=== PATIENT | male | born 1985 | race Caucasian/White ===

== ENCOUNTER 2018-04-06 10:12 | Inpatient (IN) | payer BC, OTHER ==
[~2018-04-06] VITALS: Ht 177.8 cm; Wt 73.5 kg
[2018-04-06] MEDS ORDERED: LORAZEPAM 1 MG TABLET PO PRN (13:00)
[2018-04-06] MEDS ORDERED: ONDANSETRON ODT 4 MG TAB.RAPDIS SL PRN (13:00)
[2018-04-06] MEDS ORDERED: MIRALAX 17 GM POWD.PACK PO PRN (13:00)
[2018-04-06] MEDS ORDERED: CLONIDINE HCL 0.1 MG TABLET PO PRN (13:00)
[2018-04-06] MEDS ORDERED: LOPERAMIDE HCL 2 MG CAPSULE PO PRN ×2 (13:00)
[2018-04-06] MEDS ORDERED: diphenhydrAMINE 50 MG CAPSULE PO PRN (13:00)
[2018-04-06] MEDS ORDERED: MAGNESIUM HYDROXIDE 30 ML LIQUID UDC PO PRN (13:00)
[2018-04-06] MEDS ORDERED: IBUPROFEN 600 MG TABLET PO PRN (13:00)
[2018-04-06] MEDS ORDERED: ONDANSETRON 4 MG/2 ML VIAL IM PRN (13:00)
[2018-04-06] MEDS ORDERED: BUPRENORPHINE HCL 2 MG TAB.SUBL SL PRN (13:00)
[2018-04-06] MEDS ORDERED: ACETAMINOPHEN 325 MG TABLET PO PRN (13:00)
[2018-04-06] MEDS ORDERED: MAG HYDROX/AL HYDROX/SIMETH 30 ML LIQUID UDC PO PRN (13:00)
[2018-04-06] MEDS ORDERED: DICYCLOMINE HCL 20 MG TABLET PO PRN (13:00)
[2018-04-06] MEDS ORDERED: NICOTINE 14 MG/24HR PATCH TD PRN (13:15)
[2018-04-06] MEDS ORDERED: NICOTINE POLACRILEX 4 MG GUM-PK OF TEN BC PRN (13:15)
--- NOTE | 2018-04-06 13:25 | NUR ---
PRE ADMISSION NOTE: PATIENT MET IN INTAKE OFFICE, HE APPEARS SOMBER WITH A FLAT AFFECT AND MILDLY INTOXICATED, AVOIDS EYE CONTACT. VITAL SIGNS: BP 118/57, HR 88, O2 97%, RR [address] JOHNSON, WILL COMPLETE ASSESSMENT WHEN PATIENT ARRIVES ON FLOOR.
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
[2018-04-06 13:47] LABS: BASOPHILS # (AUTO) 0.1 K/uL (0.0-8.0); BASOPHILS % (AUTO) 0.7 % (0.0-2.0); EOSINOPHILS # (AUTO) 0.1 K/uL (0.0-0.7); HEMATOCRIT 44.7 % (36.7-47.1); HEMOGLOBIN 15.4 g/dL (12.5-16.3); LYMPHOCYTES # (AUTO) 1.9 K/uL (20.0-40.0); LYMPHOCYTES % (AUTO) 22.7 % (20.5-51.5); MEAN CORPUSCULAR HEMOGLOBIN 27.3 uug (23.8-33.4); MEAN CORPUSCULAR HGB CONC 35 g/dL (32.5-36.3); MEAN CORPUSCULAR VOLUME 79.2 fL (73.0-96.2); MONOCYTES # (AUTO) 0.4 K/uL (2.0-10.0); MONOCYTES % (AUTO) 4.8 % (0.0-11.0); NEUTROPHILS # (AUTO) 5.9 K/uL (1.8-8.9); NEUTROPHILS % (AUTO) 70.8 % (38.5-71.5); PLATELET COUNT (AUTO) 247 K/uL (152-348); RED BLOOD CELL COUNT(AUTO) 5.65 MIL/uL (4.06-5.63); WHITE BLOOD COUNT (AUTO) 8.3 K/uL (3.6-10.2)
[2018-04-06 14:03] LABS: ALANINE AMINOTRANSFERASE 45 U/L (16-63); ALKALINE PHOSPHATASE 97 U/L (50-136); ASPARTATE AMINOTRANSFERASE 27 U/L (15-37); BILIRUBIN,TOTAL 0.6 mg/dL (0.2-1.0); CARBON DIOXIDE 33 mmol/L (21-32); CHLORIDE 99 mmol/L (98-107); CREATININE 1.1 mg/dL (0.6-1.3); GLUCOSE 99 mg/dL (74-106); MAGNESIUM 2.3 mg/dL (1.8-2.4); POTASSIUM 3.9 mmol/L (3.5-5.1); TOTAL PROTEIN, SERUM 7.8 g/dL (6.4-8.2); UREA NITROGEN, BLOOD 25 mg/dL (7-18)
[2018-04-06] MEDS ORDERED: LACT1CAP71 PO (15:03)
[2018-04-06] MEDS ORDERED: QUET25TA PO (15:03)
[2018-04-06] MEDS ORDERED: SERT100T PO (15:03)
[2018-04-06] MEDS ORDERED: GABA600T2 PO (15:03)
[2018-04-06 15:04] LABS: *AMPHETAMINE, URINE POSITIVE (NEGATIVE); *BARBITURATE, URINE NEGATIVE (NEGATIVE); *CANNABINOID, URINE NEGATIVE (NEGATIVE); *COCCAINE, URINE NEGATIVE (NEGATIVE); *OPIATE, URINE POSITIVE (NEGATIVE); *PHENCYCLIDINE SCREEN,URINE NEGATIVE (NEGATIVE)
[2018-04-06] MEDS: TERBINAFINE CREAM 24 GM TUBE TP SCH (15:15)
[2018-04-06 15:27] LABS: ETHANOL < 3 MG/DL (0-0)
[2018-04-06 17:00] VITALS: BP 105/65
[2018-04-06] MEDS: GABAPENTIN 600MG PO SCH ×2 (18:00→20:58)
--- NOTE | 2018-04-06 18:57 | NUR ---
END OF SHIFT : PATIENT IS A 32 YR OLD MALE ADMITTED TODAY 04/06/18 FOR A MEDICALLY SUPERVISED WITHDRAWAL FROM OPIATES ( HEROIN). PATIENT HAS NOT STARTED ANY TAPER YET BUT STATES AT THIS TIME HE IS STARTING TO FEEL SOME MILD WITHDRAWAL SYMPTOMS MAINLY AGITATION AND IRRITABILITY, ATIVAN 2MG PO GIVEN FOR CIWA 11. PATIENT HAD A FLUID INTAKE OF 300 ML,2 VOIDS AND 0BM. UDS AND BLOOD LABS COMPLETE. PATIENT HAS A SAD, FLAT AFFECT BUT IS COOPERATIVE AND ADHERENT TO ALL RULES. LAST COWS 6 @ 1700 AND CIWA 13@ 1800 CONTINUE TO FOLLOW MD PLAN OF CARE, ENDORSED TO NIGHT NURSE.
--- NOTE | 2018-04-06 19:30 | NUR ---
Start of Shift Notes: Report received from day shift nurse. Per day shift nurse, last CIWA was 6 at 1541. Upon start of shift pt was in room, in bed, with eyes closed. Respirations even and unlabored. Pt had just received 2mg Ativan PRN prior to start of shift. Pt is AOx3, lung sounds clear bilaterally. No acute distress noted. Skin is warm and dry. Pt denies pain at this time. Pt is currently on PRN Subutex protocol for opiate withdrawal management. Bed in lowest position. Side rails up x2. Call light functioning and within reach. All needs attended and met. Will continue to monitor.
[2018-04-06 20:00] VITALS: BP 110/64
--- NOTE | 2018-04-07 | NUR ---
Vitals refused/COWS deferred: Attempted to take vital signs. Pt currently in bed with eyes closed. Pt unwilling to take vitals and requests to sleep. No acute distress noted. Will continue to monitor.
[2018-04-07 04:00] VITALS: BP 107/70
--- NOTE | 2018-04-07 04:00 | NUR ---
COWS deferred: Vitals taken. Pt unwilling to do COWS assessment. Pt remains in bed with eyes closed and continues to sleep.
--- NOTE | 2018-04-07 07:03 | NUR ---
End of Shift Notes: Pt currently in bed with eyes closed. Pt slept for 9 hours. No PRN medications given during shift. Pt's last COWS was 4 at 2000. Unable to assess COWS at 0000 and 0400 due to pt being asleep. Pt is currently on PRN Subutex protocol for withdrawal management. Fall and Sz precautions observed. Bed in lowest position. Side rails up x2. Call light functioning and within reach. All needs attended and met. Will endorse to day shift nurse.
--- NOTE | 2018-04-07 07:10 | NUR ---
START OF SHIFT : PATIENT IS A 32 YR OLD MALE ADMITTED TO [facility] ON 04/06/18 FOR A MEDICALLY SUPERVISED WITHDRAWAL FROM HEROIN. HE IS ASLEEP IN BED AT THIS TIME, BREATHING EVEN AND UNLABORED, SIDE RAILS UP X 2. NO PRN MEDICATIONS WERE REQUIRED OR REQUESTED ON PM SHIFT. PATIENT SLEPT FOR 7 HOURS AND LAST COWS 4 @ 8PM. CONTINUE TO FOLLOW MD PLAN OF CARE.
[2018-04-07 08:00] VITALS: BP 120/67
[2018-04-07 08:07] LABS: HEPATITIS B SURFACE AG Negative (Negative)
[2018-04-07] MEDS ORDERED: TUBERCULIN,PURIF.PROT.DERIV. 5 TU/0.1 ML TEST ID ONE (09:00)
--- NOTE | 2018-04-07 09:00 | NUR ---
PRN IMODIUM IMODIUM 4MG PO GIVEN FOR R/O DIARRHEA X 2 WILL REASSESS
[2018-04-07] MEDS: TERBINAFINE CREAM 24 GM TUBE TP SCH (09:01)
[2018-04-07] MEDS: GABAPENTIN 600MG PO SCH ×3 (09:01→20:33)
--- NOTE | 2018-04-07 10:00 | NUR ---
PRN REASSESS PT REPORTS DIARRHEA HAS STOPPED, IMODIUM EFFECTIVE
[2018-04-07 12:00] VITALS: BP 103/58
[2018-04-07] MEDS: BUPRENORPHINE HCL 2 MG TAB.SUBL SL SCH ×2 (13:00→20:33)
[2018-04-07] MEDS: METHOCARBAMOL 750 MG TABLET PO PRN (13:36)
[2018-04-07] MEDS: HYDROXYZINE PAMOATE 25 MG CAPSULE PO PRN (13:45)
--- NOTE | 2018-04-07 13:45 | NUR ---
PRN CLONIDINE/VISTARIL/ROBAXIN CLONIDINE 0.1MG PO VISTARIL 25MG PO GIVEN FOR INCREASED ANXIETY/AGITATION ROBAXIN 750MG PO GIVEN FOR MUSCLE CRAMPS WILL REASSESS
[2018-04-07] MEDS ORDERED: LORAZEPAM 1 MG TABLET PO PRN (14:00)
--- NOTE | 2018-04-07 14:02 | NUR ---
Client was prompted to attend group counseling sessions twice daily.
--- NOTE | 2018-04-07 14:30 | NUR ---
PRN ATIVAN ATIVAN 2MG PO GIVEN FOR CIWA 15, PT IS IRRITABLE, HIGH ANXIETY AND WHOLE BODY SHAKING WILL REASSESS
--- NOTE | 2018-04-07 14:45 | NUR ---
PRN REASSESS ROBAXIN EFFECTIVE FOR MUSCLE CRAMPS CLONIDINE AND VISTARIL MILDLY EFFECTIVE PER PT REPORT CONTINUE TO MONITOR
[2018-04-07] MEDS ORDERED: QUETIAPINE FUMARATE 25 MG TABLET PO PRN (15:00)
--- NOTE | 2018-04-07 15:09 | NUR ---
PRN ATIVAN REASSESS PT ASLEEP IN BED, BREATHING EVEN AND UNLABORED, CONTINUE TO MONITOR
--- NOTE | 2018-04-07 15:18 | NUR ---
ENDORSEMENT PATIENT ENDORSED TO ELLEN WATSON FOR CONTINUATION OF CARE, PT ASLEEP IN BED AT THIS TIME, PRN MEDS GIVEN BY THIS NURSE TODAY : IMODIUM, VISTARIL, CLONIDINE, ROBAXIN AND ATIVAN 2MG. LAST COWS 10 AND CIWA 11@ 1500.
[2018-04-07 16:00] VITALS: BP 102/57
--- NOTE | 2018-04-07 18:57 | NUR ---
End Of Shift Report given to night auditor nurse, plan of care reviewed, VS monitored closely q 4 hours. Withdrawal symptoms were closely monitored, medications given as scheduled. Initial COWS 9. Patient encouraged adequate PO fluid intake as tolerated. Patient presented with tremors sweats, and anxiety during the day. Pt Received PRN Imodium, Vistaril, Clonidine, Ativan and Robaxin all medication were effective. Last COWS 11. Pt states Ativan been helping him with his withdrawal symptoms. Pt refused to take the Subutex. Plan of care followed, updated on patients condition. Pt ate all of his meals, attended some groups and activities. Patient encouraged to attend all group therapies/sessions to learn new coping skills to recent relapse, patient denies SI/HI. all safety measures in place, bed in lowest locked position, call light within reach. All needs met and attended.
[2018-04-07 20:00] VITALS: BP 107/61
--- NOTE | 2018-04-07 20:00 | NUR ---
Start of Shift Note Received 32 y/o male px, admitted for medically supervised withdrawal from Heroin. Px is placed on 3 day Subutex taper ending on 04/09/2018. Last reported COWS 11 by AM shift nurse. During the rounds at 1999, px is awake on bed in left side lying position. Px appears disheveled, unshaven and anxious. Unfinished drinks and snacks noted on top of the bed side table and cabinet. Px has poor eye contact and flat affect. Px stated "My anxiety is 5/10 and I feel restless. I have body aches of 3/10." Px requested for another blanket. Bed on lowest position, side rails up 2x and call light within reach. We'll continue to monitor.
--- NOTE | 2018-04-07 20:20 | NUR ---
Px is refusing to take Subutex Px stated "I wanted to be free on opiate. I don't want to take the Subutex." Px educated about the effects of the Subutex. Finally, px agrees to take the Subutex 2 mg/tab, 2 tabs as standing order at 2100. COWS 11 at this moment.
[2018-04-08] VITALS: BP 106/58
[2018-04-08 04:00] VITALS: BP 110/61
--- NOTE | 2018-04-08 04:00 | NUR ---
COWS deferred COWS deferred at 0000 and 0400 due to the px is asleep, to assess if the px is awake per doctor's order. We'll continue to monitor.
[2018-04-08] MEDS: METHOCARBAMOL 750 MG TABLET PO PRN (06:21)
--- NOTE | 2018-04-08 06:21 | NUR ---
PRN Robaxin Px received Robaxin 750 mg/ tab, 1 tab for body aches 07/02 as PRN medication. To reassess after an hour. We'll continue to monitor.
--- NOTE | 2018-04-08 07:10 | NUR ---
End of Shift Note During the shift, px slept most of the time. Px was refusing to take Subutex as a standing order at 2100, px was educated about the effects of Subutex, then px finally agreed to take it. At 0621, px complained about body aches of 8/10. Robaxin 750 mg given PO as PRN medication. To reassess after an hour. Px's oral intake is 1 L, voided 2x, with No BM. Last COWS 9. Bed on lowest position, side rails up 2x and call light within reach. We'll continue to monitor. Px endorsed to AM shift nurse.
--- NOTE | 2018-04-08 07:30 | NUR ---
START OF SHIFT Pt 32 y/o male admitted for heroin withdrawal. Pt received in room on bed with eyes closed resting, but easily arousable to name. Pt alert and oriented to name, place, and time. Perrla. Skin warm and moist to touch. Respirations even and unlabored. Bilateral hand tremors noted. Pt disheveled. Food wrappings and empty water bottles scattered throughout the room. Pt with flat affect. It was reported that pt slept for 9 hours last night. Pt is on a 3 day subutex taper and is on day 2. Bed on lowest position with side rails x2 up for safety. Call light within reach.
[2018-04-08 08:00] VITALS: BP 121/72
[2018-04-08] MEDS: BUPRENORPHINE HCL 2 MG TAB.SUBL SL SCH ×3 (08:37→21:44)
[2018-04-08] MEDS: SERTRALINE HCL 100 MG TABLET PO SCH (08:37)
[2018-04-08] MEDS: GABAPENTIN 600MG PO SCH ×3 (08:37→21:44)
[2018-04-08] MEDS: TERBINAFINE CREAM 24 GM TUBE TP SCH (08:37)
[2018-04-08 12:00] VITALS: BP 112/70
[2018-04-08] MEDS ORDERED: KETOROLAC TROMETHAMINE 30 MG INJ IM PRN (12:15)
[2018-04-08 16:00] VITALS: BP 116/76
--- NOTE | 2018-04-08 18:47 | NUR ---
END OF SHIFT Pt 32 y/o male admitted for heroin withdrawal. Pt alert and oriented to name, place, and time. Perrla. Skin warm and moist to touch. Respirations even and unlabored. Bilateral hand tremors noted. Pt disheveled. Clothes and empty water bottles scattered throughout the room. Pt isolative to room throughout the day. Pt did not attend group activity. Pt with low motivation for self care. Pt also with minimal peer interaction. Encouraged to maintain hygiene. Pt was seen by MD today. Pt medication compliant and tolerated well. No ASE noted. Pt is on a 3 day subutex taper and is on day 2. Cows= 9@0800, 9@1200, and 9@1600. Bed on lowest position with side rails x2 up for safety. Call light within reach.
--- NOTE | 2018-04-08 19:30 | NUR ---
Start of Shift Note Received 32 y/o male px, admitted for medically supervised withdrawal from Heroin. Px is placed on 3 day Subutex taper ending on 04/09/2018. Px is tolerating it. Last reported COWS 9 by AM shift nurse. During the rounds at 1940, px is awake standing, eating a bar of chocolate inside his room. Px appears disheveled, unshaven and anxious. Unfinished drinks and snacks still noted on top of the bed side table and cabinet. Px has flat affect. Px stated "I feel hot/cold flushes. right now, my anxiety is 5/10. " Bed on lowest position, side rails up 2x and call light within reach. We'll continue to monitor.
[2018-04-08 20:00] VITALS: BP 121/83
[2018-04-08] MEDS: CLONIDINE HCL 0.1 MG TABLET PO SCH (21:44)
[2018-04-08] MEDS: BACLOFEN 10 MG TABLET PO SCH (21:44)
[2018-04-09] VITALS: BP 120/62
[2018-04-09 04:00] VITALS: BP 118/65
--- NOTE | 2018-04-09 04:00 | NUR ---
COWS deferred COWS deferred due to the px is asleep, to assess if the px is awake per doctor's order. We'll continue to monitor.
--- NOTE | 2018-04-09 07:06 | NUR ---
End of Shift Note During the shift, No PRN medication given. Px's oral intake is 1 L, voided 2x, with No BM. Px slept for total of 6 hours. Last COWS 7. At 0630, px is awake on bed in fowlers position. Bed on lowest position, side rails up 2x and call light within reach. We'll continue to monitor. Px endorsed to AM shift nurse.
--- NOTE | 2018-04-09 07:24 | NUR ---
START OF SHIFT Pt 32 y/o male admitted for heroin withdrawal. Pt received in room on bed watching television. Pt alert and oriented to name, place, and time. Perrla. Skin warm and moist to touch. Respirations even and unlabored. Bilateral hand tremors noted. Pt disheveled. Clothes and empty water bottles scattered throughout the room. Pt appears with low motivation for self care. Encouraged to maintain hygiene. Pt with c/o chills this morning. It was reported that pt slept for 6 hours last night. Pt is on a 3 day subutex taper and is on day 3. Bed on lowest position with side rails x2 up for safety. Call light within reach.
[2018-04-09] MEDS: CLONIDINE HCL 0.1 MG TABLET PO SCH ×3 (08:27→20:27)
[2018-04-09] MEDS: GABAPENTIN 600MG PO SCH ×3 (08:27→20:27)
[2018-04-09] MEDS: BACLOFEN 10 MG TABLET PO SCH ×3 (08:27→20:27)
[2018-04-09] MEDS: SERTRALINE HCL 100 MG TABLET PO SCH (08:27)
[2018-04-09] MEDS: TERBINAFINE CREAM 24 GM TUBE TP SCH (08:27)
[2018-04-09 08:31] VITALS: BP 143/88
[2018-04-09] MEDS ORDERED: BUPRENORPHINE HCL 2 MG TAB.SUBL SL SCH (09:00)
[2018-04-09 12:00] VITALS: BP 109/68
[2018-04-09] MEDS ORDERED: IBUP-1955 PO (14:47)
[2018-04-09] MEDS ORDERED: HYDR-3895 PO (14:47)
[2018-04-09] MEDS ORDERED: CLON0.1T14 PO (14:47)
[2018-04-09] MEDS ORDERED: DICY20TA28 PO (14:47)
[2018-04-09] MEDS ORDERED: METH-406 PO (14:47)
[2018-04-09 16:00] VITALS: BP 108/49
--- NOTE | 2018-04-09 18:40 | NUR ---
END OF SHIFT Pt 32 y/o male admitted for heroin withdrawal. Pt alert and oriented to name, place, and time. Perrla. Skin warm and moist to touch. Respirations even and unlabored. Bilateral hand tremors noted. Pt disheveled. Clothes and empty water bottles scattered throughout the room. Pt observed mostly in room throughout the day, but did attend group activity and went to recreational room at times. Encouraged to maintain hygiene. Pt was seen by MD today. Pt medication compliant and tolerated well. No ASE noted. Pt is on a 3 day subutex taper and is on day 3. Cows= 7@0800, 6@1200, and 6@1600. Pt is scheduled to be discharged tomorrow. Bed on lowest position with side rails x2 up for safety. Call light within reach.
--- NOTE | 2018-04-09 18:40 | NUR ---
START OF SHIFT NOTE: 32 year old male completed 3 Day Subutex Taper today for Opioid/Heroin withdrawal, which tolerated well. Withdrawal symptoms was closely monitored. Patient remains compliant with treatment, medications, and diet regime. He is alert and oriented x4. Patient appears worry, sad with flat affect. Emotional support provided. The patient noted disheveled, unshaven, unkempt, and uncombed. Patient was encouraged to independently perform hygiene care. Last COWS=6 at 1600: During day shift patient presented with anxiety,agitation, depression, nervousness,tremors, nasal congestion, sweating, body aches, restlessness, and fatigue, per day shift nurse report. VSWNL. Respirations are even and unlabored. Patient denies SOB, chest pain, and cough. Skin is intact, warm and moist to touch. No PRN medications given during day shift. Patient scheduled discharging tomorrow, on 04/10/2018 at 0930. All needs met. Safe and calm environment with minimized noises was provided. Safety measures in the place: Call light within reach, bed in the lowest position locked, padded rails up x2. Patient endorsed by day shift nurse.
[2018-04-09 20:00] VITALS: BP 123/63
--- NOTE | 2018-04-09 21:46 | NUR ---
PRN SEROQUEL 25 MG 1 TABLET PO ADMINISTRATION Patient c/o insomnia. PRN Seroquel 25 mg PO administrated with full glass of water as ordered. All needs met. Safe and calm environment with minimized noises was provided. Safety measures on place. Call light within reach, bed locked in lowest position, padded rails up bilaterally. Will continue to monitor closely.
--- NOTE | 2018-04-09 22:46 | NUR ---
RE-ASSESSMENT Patient is sleeping. RR 17. Respirations even and unlabored. PRN Seroquel 25 mg PO administrated for insomnia at 2146 was effective. Safe and calm environment with minimized noises was provided. All needs met. Safety measures on place. Call light within reach, bed locked in lowest position, padded rails up bilaterally. Will continue to monitor closely.
--- NOTE | 2018-04-10 | NUR ---
VS REFUSED, COWS DEFERRED VS refused, COWS deferred at 0400 due to patient sleeping; to be assessed and scored while patient is awake. Respirations are even and unlabored. RR:17. All needs met. Safety measures in place: Call light within reach, bed locked in low position, padded side rails up x2. Will continue to monitor closely. VS REFUSED, COWS DEFERRED VS refused, COWS deferred at 0000 due to patient sleeping; to be assessed and scored while patient is awake. Respirations are even and unlabored. RR:15. All needs met. Safety measures in place: Call light within reach, bed locked in low position, padded side rails up x2. Will continue to monitor closely.
--- NOTE | 2018-04-10 04:00 | NUR ---
VS REFUSED, COWS DEFERRED VS refused, COWS deferred at 0400 due to patient sleeping; to be assessed and scored while patient is awake. Respirations are even and unlabored. RR:16. All needs met. Safety measures in place: Call light within reach, bed locked in low position, padded side rails up x2. Will continue to monitor closely.
--- NOTE | 2018-04-10 06:59 | NUR ---
END OF SHIFT NOTE: Presented patient is a 32 year old male admitted for safety withdrawal from Opioid (heroin). He is completed ordered 3 day Subutex taper without ASE Patient is alert and oriented x4, reports NKA, is on Full Code, Regular Diet, is on Seizures and Fall Precautions. Patient denies withdrawal-induced seizures, hallucinations, and SI/HI. Patient is alert and oriented x4. The most recent COWS=10. Patient presented with anxiety, agitation, nervousness, abdominal cramps, tremors, sweating, restlessness, fatigue, and insomnia. PRN Seroquel 25 mg PO administrated for insomnia at 2146 was effective. Patient remains compliant with treatment, medications, and diet regime. Encouraged to fluids intake as tolerated. Encouraged to attend group activities. Patient slept 6 hours, intake 1,302 ml, voided x4. Patient scheduled discharging today. All needs met. Safe and calm environment with minimized noises was provided. Patient slept 7 hours, intake 500 ml, voided x1. Safety measures in the place: Call light within reach, bed in the lowest position locked, padded rails up x2. Patient endorsed to day shift nurse.
--- NOTE | 2018-04-10 07:20 | NUR ---
Start of shift Patient is a 32 year old male admitted for medically supervised withdrawal heroin. He completed 3 day Subutex taper. Pt scheduled for discharge to home today. Pt states he does not want to be discharged today. He is worried he will call his drug dealer when he gets out. He c/o generalized body aches and pain #8/10. Restless, anxious agitated, and rocking back and forth in bed. Patient is alert and oriented x4, reports NKA, Full Code. Pt is on Seizures and Fall Precautions. Patient denies withdrawal-induced seizures, hallucinations, and SI/HI. COWS=8. Patient remains compliant with treatment, medications, and diet regime. Last night Pt slept 7 hours. Safety measures in the place: Call light within reach, bed in the lowest position locked, padded rails up x2. Will continue to monitor for withdrawal symptoms.
[2018-04-10] MEDS: SERTRALINE HCL 100 MG TABLET PO SCH (07:43)
[2018-04-10] MEDS: HYDROXYZINE PAMOATE 25 MG CAPSULE PO PRN (07:43)
[2018-04-10] MEDS: GABAPENTIN 600MG PO SCH (07:44)
[2018-04-10] MEDS: TERBINAFINE CREAM 24 GM TUBE TP SCH (07:44)
[2018-04-10] MEDS: CLONIDINE HCL 0.1 MG TABLET PO SCH (07:44)
[2018-04-10] MEDS: BACLOFEN 10 MG TABLET PO SCH (07:44)
--- NOTE | 2018-04-10 07:45 | NUR ---
PRN Toradol 30 mg IM for body pain, sharp burning, aches, generalized #8/10. PRN Vistaril 25 mg po for anxiety. Pt states please do not discharge me todayAdministered AM meds 15 minutes early because Pt extremely anxious and concerns about being discharged this morning.
[2018-04-10 08:00] VITALS: BP 118/71
--- NOTE | 2018-04-10 08:47 | NUR ---
REASSESS- COWS NOW 2. PT REPORTS ANXIETY UNDER CONTROL, GENERALIZED BODY PAIN GONE 0/10. PT VERBALIZED HE IS READY TO GO HOME. ENCOURAGED PT TO FIND A [employer] ANONYMOUS MEETING TODAY AND GET A SPONSOR. PT DENIES SUICIDAL OR HOMICIDAL IDEATIONS.
--- NOTE | 2018-04-10 09:40 | NUR ---
Discharge Note Patient is in stable condition, vital signs stable, WNL, skin intact. He denies any suicidal or homicidal ideations. All discharge paperwork signed and dated. Patient was discharged from [facility] on 04/10/2018 at 0940. He went home. Pt left the building with all of his medications, belongings and prescriptions. notified.
== END 2018-04-10 09:40 | disposition home or self-care (01) | DRG 895 ==
LOC: SRC 12:55
PROVIDERS: ADMIT Internal Medicine; ATTEND Internal Medicine
PROC: HZ2ZZZZ Detoxification Services for Substance Abuse Treatment (ICD-10-PCS; principal; 2018-04-06)
PROC: HZ41ZZZ Group Counseling for Substance Abuse Treatment, Behavioral (ICD-10-PCS; 2018-04-08)
DX: F11.23 Opioid dependence with withdrawal (principal); E87.3 Alkalosis; I15.9 Secondary hypertension, unspecified; F33.9 Major depressive disorder, recurrent, unspecified; E86.0 Dehydration; B35.9 Dermatophytosis, unspecified; F15.10 Other stimulant abuse, uncomplicated; F17.210 Nicotine dependence, cigarettes, uncomplicated; F41.9 Anxiety disorder, unspecified
CPT/HCPCS: 36415; 70030-TC; 80307; 80324; 80361; 83735; 85025; 86592; 86705; 86803; 87340; 87806; A4663; G0480; J1885